=== PATIENT | female | born 1990 | race Caucasian/White ===

== ENCOUNTER 2023-10-05 20:32 | Emergency (ER) | payer MEDICAID, SELFPAY ==
[2023-10-05 20:38] VITALS: BP 124/86
--- NOTE | 2023-10-05 21:25 | ED.GENMED ---
History of Present Illness
General
Chief Complaint: Eye Problems
Source: patient
Exam Limitations: none
Time Seen by Provider: 10/05/23 20:46
Nursing documentation reviewed up to this point in time: agreed with
Travel History
Have you had any contact with someone who has COVID-19?: No
Do you have any symptoms of coronavirus? Fever > 100 degrees, chills, cough, shortness of breath, sore throat, loss of taste or smell, muscle aches, or headache?: No
History of Present Illness
History of Present Illness:
Pleasant 33-year-old female who presents with left eye pain. She states that her toddler poked her in the eye inadvertently. She has pain and haziness in the eye. She denies any problems with her range of motion. Last tetanus not up-to-date.
Past History
Past History
ED Past Medical History: Asthma and Other (Pulmonary embolus)
ED Past Surgical History: None
Social History
Tobacco: Non-smoker
Review of Systems
Review of Systems
Other source history: family
All Other Systems: ROS reviewed and negative except as documented in HPI and ROS
Constitutional: Reports no symptoms
EENT: Reports other (Eye pain)
Respiratory: Reports no symptoms
Cardiac: Reports no symptoms
ABD/GI: Reports no symptoms
: Reports no symptoms
Musculoskeletal: Reports no symptoms
Skin: Reports no symptoms
Neurological: Reports no symptoms
Endocrine: Reports no symptoms
Hematologic/Lymphatic: Reports no symptoms
Psychiatric: Reports no symptoms
Phy Exam
General Physical Exam
General Presentation: well appearing and mild distress
General age: appears stated age
General Skin: warm and dry
General Habitus: normal
General Mental: alert
General Hydration: appears well hydrated
Eye Exam
Eye Exam: PERRL and EOMI
Eye Exam General: PERRL: bilateral and EOM intact: bilateral
Cornea Exam: abrasion: Left (Midline horizontal approximate 1 mm in length)
Pupil and Lens Exam: round pupil: Bilateral
Tonometry: Side: Left (iCare tonometer used)
Pressure: 12
Pulmonary Exam
Pulmonary Exam: no respiratory distress
Musculoskeletal Exam
Musculoskeletal Exam: full ROM and neuro vasc intact
Skin Exam
Skin Exam: normal color and warm/dry
Psychiatric Exam
Psychiatric Exam: normal mood/affect
Course
Orders/Labs/Results
Orders:
Orders
10/05/23 21:26
Gentamicin [Genoptic 0.3% Eye Drops] See Dose Instructions OPHTH NOW STA
Tetanus/Diphth/Acelpertussis [Adacel] 0.5 ml IM .ONCE ONE
Vital Signs
Initial and Last Documented VS:
Initial Vital Signs
Temp Pulse Resp BP Pulse Ox
98.4 F 84 16 124/86 100
10/05/23 20:38 10/05/23 20:38 10/05/23 20:38 10/05/23 20:38 10/05/23 20:38
Last Documented Vital Signs
Temp Pulse Resp BP Pulse Ox
98.4 F 84 16 124/86 100
10/05/23 20:38 10/05/23 20:38 10/05/23 20:38 10/05/23 20:38 10/05/23 20:38
*Critical Care Note
Total Time (30-74mins, 75-104mins- exclusive of procedures): Not Applicable
ED Attending Note
-
Portions of this chart may have been created with voice recognition software.� Occasional wrong word or��sound alike� substitutions may have occurred due to the inherent limitations of voice recognition software.
Discharge Plan
Departure
Patient Disposition: Home (Routine Discharge)
Date of Disposition: 10/05/23
Time of Disposition: 21:30
Patient with high blood pressure during this ER visit?: Yes
Discharge Problem:
Abrasion, corneal
Instructions: Corneal Abrasion (DC), How to Use Eye Drops, Tdap vaccine, BLOOD PRESSURE
Prescriptions:
No Action
multivitamin [Multi-Day] 1 EACH tablet
1 ea PO DAILY
tizanidine 4 MG tablet
4 mg PO TID
Patient Comments:
usually only takes nightly
lidocaine [FERNANDO-Max] 4 % cream
1 applic topical BID
Patient Comments:
5% ointment per pt
escitalopram oxalate 20 MG tablet
20 mg PO DAILY
metaxalone [Skelaxin] 800 MG tablet
800 mg PO DAILY
Patient Comments:
ordered q8h per pt, only takes nightly
cyclobenzaprine 10 MG tablet
10 mg PO TIDPRN PRN (Reason: spasm) Qty: 9 0RF
hydrocodone-acetaminophen 1 TABLET tablet
1 tab PO Q4HPRN PRN (Reason: pain) Qty: 10 0RF
prednisone 50 MG tablet
50 mg PO Daily Qty: 4 0RF
oxycodone-acetaminophen 5 MG/325 MG tablet
1 tab PO Q4HPRN PRN (Reason: Pain) Qty: 12 0RF
ondansetron HCl 4 mg tablet
4 mg PO Q8H PRN (Reason: nausea and vomiting) Qty: 10 0RF
Referrals:
Kimani Wang MD [Active] -
Activity Restrictions/Additional Instructions:
Please apply 1 drop to left eye every 4-6 hours while awake for 5 days
It was a pleasure meeting you and taking part in your care. We hope for your continued healing and wellness.
Please read discharge instructions in their entirety. However, they are for general education and may not describe your exact diagnosis at discharge. Information on your ER visit and medical conditions were discussed with you along with appropriate
follow up information...
If indicated, please take your medications as instructed and indicated on discharge paperwork.
Please schedule a follow up appointment as directed. Call to schedule an appointment
Please return to the emergency department with ANY change in, persisting, or worsening of symptoms. If any of your symptoms do not improve, or persist, or become more severe within 6-12 hours, please return to the emergency department for further
care.
Please return to the emergency department if you develop a headache, neck pain/stiffness, fever greater than 100.4F, chest pain, shortness of breath, persistent nausea, vomiting, slurred speech, difficulty walking, numbness/tingling, weakness, signs
of infection or any other symptoms that are worrisome to you.
If you have any questions or concerns please do not hesitate to call the Hospital at or E-mail me directly at [email or web address]
Interventions
Interventions:
*Risk Screen - Suicide Last Done: 10/05/23 20:38
*General Assessment Last Done: 10/05/23 20:38
*Neglect/Abuse Screening Last Done: 10/05/23 20:38
[2023-10-05] MEDS: GENOPTIC 0.3% EYE DROPS 1 DROP OPHTH (21:39)
[2023-10-05] MEDS: ADACEL 0.5 ML IM (21:39)
== END 2023-10-05 21:40 | disposition home or self-care (01) ==
LOC: EMR 20:32
PROVIDERS: EMERGENCY PHYSICIAN Student in an Organized Health Care Education/Training Program; FAMILY PHYSICIAN Family Medicine Geriatric Medicine
DX: S05.02XA Injury of conjunctiva and corneal abrasion without foreign body, left eye, initial encounter (principal); X58.XXXA Exposure to other specified factors, initial encounter; Z23 Encounter for immunization; J45.909 Unspecified asthma, uncomplicated; Z86.711 Personal history of pulmonary embolism
CPT/HCPCS: 90471; 90715; 99282

== ENCOUNTER 2023-10-22 12:42 | Emergency (ER) | payer MEDICAID, SELFPAY ==
[2023-10-22 12:45] VITALS: BP 133/73
--- NOTE | 2023-10-22 13:49 | ED.MUSCINJ ---
HPI-Injury
General
Chief Complaint: Fall
Source: patient
Exam Limitations: none
Time Seen by Provider: 10/22/23 13:03
Nursing documentation reviewed up to this point in time: agreed with
Travel History
Have you had any contact with someone who has COVID-19?: No
Do you have any symptoms of coronavirus? Fever > 100 degrees, chills, cough, shortness of breath, sore throat, loss of taste or smell, muscle aches, or headache?: No
History of Present Illness-Injury
Is this injury a work related problem?: No
Is pt an associate of [facility]?: No
Initial Injury comments:
Patient states she slipped on icy surface and fell. Fell onto her back. Denies hitting her head. No LOC. COmplains of pain to mid back. Hx of T12 vertebral fx approx 5 years ago. States pain feels the same. Incident occurred yesterday
Brought self to ED for eval.
Past History
Past History
ED Past Medical History: Asthma and Other (Pulmonary embolus)
ED Past Surgical History: None
Social History
Tobacco: Non-smoker
Review of Systems
Review of Systems
Allergies reviewed?: Yes
All Other Systems: ROS reviewed and negative except as documented in HPI and ROS
Constitutional: Reports no symptoms
Musculoskeletal: Reports joint pain (pain to mid back)
Skin: Reports no symptoms
Neurological: Reports no symptoms
Psychiatric: Reports no symptoms
Musculoskeletal Injury Exam
Musculoskeletal Injury Exam
Middle Back:
Pain with Movement?: Moderate
Tender to palpation?: Moderate
External deformity and angulation?: None
Contusion?: Moderate
Strain- Sprain- Tear (Connective tissue injury)?: Moderate
Joint instability?: No
Malalignment/deformity?: No
Range of motion: Limited
Distal skin color and temperature: normal-warm & good color
Phy Exam
General Physical Exam
General Presentation: well appearing and no apparent distress
General age: appears stated age
General Skin: warm
General Habitus: normal
General Mental: alert
Musculoskeletal Exam
Musculoskeletal Exam: other (MId back. Pain worse with movement. No weakness. Ambulating without assistance, gait is steady)
Skin Exam
Skin Exam: normal color
Psychiatric Exam
Psychiatric Exam: normal mood/affect
Injury Course
Orders/Labs/Results
Orders:
Orders
10/22/23 12:55
CR Thoracic Spine Min 4 Views Urgent
Comment:
Reason For Exam: back pain
Lumbar Spine, 2 or 3 View [CR Lumbar Spine 2 Or 3 Views] Urgent
Comment:
Reason For Exam: back pain
10/22/23 14:43
CR Chest - 2 Views Urgent
Comment:
Reason For Exam: ordered on wrong patient
Sternum 2 Views CR [CR Sternum Min 2 Views] Urgent
Comment:
Reason For Exam: ordered on wrong patient.
*Radiology
Radiology exam reviewed: radiology read reviewed
*Pulse Oximetry
Patient hypoxic: no
*Critical Care Note
Total Time (30-74mins, 75-104mins- exclusive of procedures): Not Applicable
Update Note
Update Note:
Sternum and Chest xray accidentally placed on this chart. Sternum and chest xray are not indicated for this patient, meant for another individual.
ED Attending Note
-
Portions of this chart may have been created with voice recognition software.� Occasional wrong word or��sound alike� substitutions may have occurred due to the inherent limitations of voice recognition software.
Discharge Plan
Departure
Patient Disposition: Home (Routine Discharge)
Date of Disposition: 10/22/23
Time of Disposition: 14:45
Patient with high blood pressure during this ER visit?: No
Condition: Good
Covid-19: Not Applicable
Discharge Problem:
Back pain
Instructions: Back Muscle Strain (DC), Contusion (DC), Using Cold for Pain
Prescriptions:
No Action
multivitamin [Multi-Day] 1 EACH tablet
1 ea PO DAILY
tizanidine 4 MG tablet
4 mg PO TID
Patient Comments:
usually only takes nightly
lidocaine [FERNANDO-Max] 4 % cream
1 applic topical BID
Patient Comments:
5% ointment per pt
escitalopram oxalate 20 MG tablet
20 mg PO DAILY
metaxalone [Skelaxin] 800 MG tablet
800 mg PO DAILY
Patient Comments:
ordered q8h per pt, only takes nightly
cyclobenzaprine 10 MG tablet
10 mg PO TIDPRN PRN (Reason: spasm) Qty: 9 0RF
hydrocodone-acetaminophen 1 TABLET tablet
1 tab PO Q4HPRN PRN (Reason: pain) Qty: 10 0RF
prednisone 50 MG tablet
50 mg PO Daily Qty: 4 0RF
oxycodone-acetaminophen 5 MG/325 MG tablet
1 tab PO Q4HPRN PRN (Reason: Pain) Qty: 12 0RF
ondansetron HCl 4 mg tablet
4 mg PO Q8H PRN (Reason: nausea and vomiting) Qty: 10 0RF
Referrals:
Trinity Charles, [Family Provider] -
Activity Restrictions/Additional Instructions:
Follow up with your family doctor.
Interventions
Interventions:
*Risk Screen - Suicide Last Done: 10/22/23 12:47
*General Assessment Last Done: 10/22/23 12:47
*Neglect/Abuse Screening Last Done: 10/22/23 12:47
ED-Musculoskeletal Assessment Last Done: 10/22/23 14:23
ED- Neurological Assessment Last Done: 10/22/23 14:23
ED-Skin Assessment Last Done: 10/22/23 14:23
[2023-10-22 15:10] VITALS: BP 106/69
== END 2023-10-22 15:11 | disposition home or self-care (01) ==
LOC: EMR 12:42
PROVIDERS: EMERGENCY PHYSICIAN Emergency Medicine; FAMILY PHYSICIAN Family Medicine Geriatric Medicine
DX: M54.9 Dorsalgia, unspecified (principal); W01.0XXA Fall on same level from slipping, tripping and stumbling without subsequent striking against object, initial encounter; J45.909 Unspecified asthma, uncomplicated; Z86.711 Personal history of pulmonary embolism
CPT/HCPCS: 99283; 71046; 71120; 72074; 72100

== ENCOUNTER 2023-12-19 17:20 | Emergency (ER) | payer MEDICAID, OTHER, SELFPAY ==
[2023-12-19 17:31] VITALS: BP 107/68
--- NOTE | 2023-12-19 18:25 | ED.GENMED ---
History of Present Illness
General
Chief Complaint: Head Injury
Source: patient
Exam Limitations: none
Time Seen by Provider: 12/19/23 17:44
Nursing documentation reviewed up to this point in time: agreed with
Travel History
Have you had any contact with someone who has COVID-19?: No
Do you have any symptoms of coronavirus? Fever > 100 degrees, chills, cough, shortness of breath, sore throat, loss of taste or smell, muscle aches, or headache?: No
History of Present Illness
History of Present Illness:
33-year-old female presents to the ER for evaluation of head injury. Patient reports several hours ago a small version of a pool table fell from above and hit the top of her head. She denies loss of consciousness. She does have a headache and
complains of upper neck pain. She denies any nausea vomiting numbness , tingling weakness to extremities.
Past History
Past History
ED Past Medical History: Asthma and Other (Pulmonary embolus)
ED Past Surgical History: None
Social History
Tobacco: Non-smoker
Alcohol: Occasional
Drug: None
Review of Systems
Review of Systems
Allergies reviewed?: Yes
All Other Systems: ROS reviewed and negative except as documented in HPI and ROS
Constitutional: Reports no symptoms; Denies fever, fatigue or chills
ABD/GI: Denies nausea or vomiting
Musculoskeletal: Reports neck pain; Denies back pain
Skin: Reports no symptoms
Neurological: Reports headache; Denies dizzy
Hematologic/Lymphatic: Reports no symptoms
Psychiatric: Reports no symptoms
Phy Exam
General Physical Exam
General Presentation: no apparent distress
General age: appears stated age
General Skin: warm and dry
General Habitus: normal
General Mental: alert
General Hydration: appears well hydrated
Neurological Exam
Neurological Exam: alert, oriented x3 and no motor deficits
Musculoskeletal Exam
Musculoskeletal Exam: other (+ small hematoma to left upper occiput , mildly tender to posterior neck )
Skin Exam
Skin Exam: normal color and warm/dry
Psychiatric Exam
Psychiatric Exam: normal mood/affect
Course
Orders/Labs/Results
Orders:
Orders
12/19/23 18:24
CT Head W/o Iv Contrast Urgent
Comment:
Reason For Exam: head trauma
12/19/23 18:25
CT Cervical Spine W/o Iv Contr Urgent
Comment:
Reason For Exam: trauma
12/19/23 19:02
, Urine Qualitative Screen [HCG, Urine Qualitative Screen] Urgent
Date Specimen was Collected: 12/19/23
Time Specimen was Collected: 19:02
Test Result ONCE
Vital Signs
Initial and Last Documented VS:
Initial Vital Signs
Temp Pulse Resp BP Pulse Ox
98.2 F 66 18 107/68 100
12/19/23 17:31 12/19/23 17:31 12/19/23 17:31 12/19/23 17:31 12/19/23 17:31
Last Documented Vital Signs
Temp Pulse Resp BP Pulse Ox
98.2 F 74 17 116/61 100
12/19/23 17:31 12/19/23 20:19 12/19/23 20:19 12/19/23 20:19 12/19/23 20:19
MDM/Problems Addressed
Differential Diagnosis Includes:
Not limited to head injury less likely intracranial hemorrhage, cervical sprain versus fracture, contusion
MDM/Problems Addressed:
Symptoms are consistent with mild head injury, will DC with Tylenol, ice and outpatient follow.
*Radiology
Radiology exam reviewed: radiology read reviewed
*Critical Care Note
Total Time (30-74mins, 75-104mins- exclusive of procedures): Not Applicable
ED Attending Note
-
Portions of this chart may have been created with voice recognition software.� Occasional wrong word or��sound alike� substitutions may have occurred due to the inherent limitations of voice recognition software.
Discharge Plan
Departure
Patient Disposition: Home (Routine Discharge)
Date of Disposition: 12/19/23
Time of Disposition: 20:41
Patient with high blood pressure during this ER visit?: No
Condition: Fair
Covid-19: Not Applicable
Discharge Problem:
Head injury
Instructions: Head Injury in Adults (DC)
Prescriptions:
No Action
multivitamin [Multi-Day] 1 EACH tablet
1 ea PO DAILY
tizanidine 4 MG tablet
4 mg PO TID
Patient Comments:
usually only takes nightly
lidocaine [FERNANDO-Max] 4 % cream
1 applic topical BID
Patient Comments:
5% ointment per pt
escitalopram oxalate 20 MG tablet
20 mg PO DAILY
metaxalone [Skelaxin] 800 MG tablet
800 mg PO DAILY
Patient Comments:
ordered q8h per pt, only takes nightly
cyclobenzaprine 10 MG tablet
10 mg PO TIDPRN PRN (Reason: spasm) Qty: 9 0RF
hydrocodone-acetaminophen 1 TABLET tablet
1 tab PO Q4HPRN PRN (Reason: pain) Qty: 10 0RF
prednisone 50 MG tablet
50 mg PO Daily Qty: 4 0RF
oxycodone-acetaminophen 5 MG/325 MG tablet
1 tab PO Q4HPRN PRN (Reason: Pain) Qty: 12 0RF
ondansetron HCl 4 mg tablet
4 mg PO Q8H PRN (Reason: nausea and vomiting) Qty: 10 0RF
Referrals:
NONE,* [Family Provider] -
Activity Restrictions/Additional Instructions:
As discussed your CAT scans were normal. You may take Tylenol or ibuprofen for discomfort. Follow-up with family doctor the next of days return if any worsening of symptoms.
Interventions
Interventions:
*Risk Screen - Suicide Last Done: 12/19/23 17:33
*General Assessment Last Done: 12/19/23 17:33
*Neglect/Abuse Screening Last Done: 12/19/23 17:33
ED- Neurological Assessment Last Done: 12/19/23 17:48
ED-Skin Assessment Last Done: 12/19/23 17:48
Discharge Date and Time
Print Language: CAMEROONIAN
[2023-12-19 19:09] LABS: HCG, Urine Qualitative Screen Negative
[2023-12-19 20:19] VITALS: BP 116/61
== END 2023-12-19 20:48 | disposition home or self-care (01) ==
LOC: EMR 17:20
PROVIDERS: Nurse Practitioner; EMERGENCY PHYSICIAN Emergency Medicine
DX: S09.90XA Unspecified injury of head, initial encounter (principal); W22.03XA Walked into furniture, initial encounter; J45.909 Unspecified asthma, uncomplicated; Z86.711 Personal history of pulmonary embolism
CPT/HCPCS: 99284; 70450; 72125; 81025

== ENCOUNTER 2024-05-14 23:44 | Emergency (ER) | payer OTHER, SELFPAY ==
[2024-05-14 23:49] VITALS: BP 119/82
--- NOTE | 2024-05-15 00:13 | ED.GENMED ---
History of Present Illness
General
Chief Complaint: Skin Problem
Source: patient
Exam Limitations: none
Time Seen by Provider: 05/15/24 00:03
History of Present Illness
History of Present Illness:
This is a 33 year old female that comes in with c/o possible abscess or cellulitis on the left shoulder .States that she started yesterday with some redness on the left shoulder. State that she went to earlier and she was place o Doxycycline.
States that she has only had one dose. States that she was told that if the redness increased or pain increases to go to the ER. Denies any fever, chills, chest pain, SOB, abd pain, nausea, vomiting, diarrhea, headache, dizziness, urinary burning.
Past History
Past History
ED Past Medical History: Asthma and Other (PE, sleep apnea, ); Negative HTN, Hypercholesterolemia or NIDDM
ED Past Surgical History: Orthopedic (left rotator cuff) and Other (Gastric sleeve)
Social History
Tobacco: Non-smoker
Alcohol: Occasional
Drug: None
Personal: Single
Living: with family
Review of Systems
Review of Systems
All Other Systems: ROS reviewed and negative except as documented in HPI and ROS
Constitutional: Reports no symptoms; Denies fever or chills
EENT: Reports no symptoms
Respiratory: Reports no symptoms; Denies cough or trouble breathing
Cardiac: Reports no symptoms; Denies chest pain
ABD/GI: Reports no symptoms; Denies abdominal pain, nausea, vomiting or diarrhea
: Reports no symptoms; Denies dysuria, frequency or urgency
Musculoskeletal: Reports no symptoms
Skin: Reports other (redness on the left shoulder)
Neurological: Reports no symptoms; Denies dizzy or headache
Psychiatric: Reports no symptoms
Phy Exam
General Physical Exam
General Presentation: well appearing and no apparent distress
General age: appears stated age
General Skin: warm and dry
General Habitus: normal
General Mental: alert
General Hydration: appears well hydrated
ENT Exam
ENT Exam: TM's normal, pharynx normal and neck supple
Eye Exam
Eye Exam: EOMI
Cardiovascular Exam
Cardiovascular Exam: regular rate/rhythm, no edema, no murmur and normal peripheral pulses
Musculoskeletal Exam
Musculoskeletal Exam: full ROM and no edema
Skin Exam
Skin Exam: normal color, warm/dry, no petechia and other (small quarter sized area of slight redness with small collection noted that is flat)
Psychiatric Exam
Psychiatric Exam: normal mood/affect
Course
Vital Signs
Initial and Last Documented VS:
Initial Vital Signs
Pulse Resp BP Pulse Ox
84 16 119/82 100
05/14/24 23:49 05/14/24 23:49 05/14/24 23:49 05/14/24 23:49
Last Documented Vital Signs
Pulse Resp BP Pulse Ox
84 16 119/82 100
05/14/24 23:49 05/14/24 23:49 05/14/24 23:49 05/14/24 23:49
MDM/Problems Addressed
Differential Diagnosis Includes:
small cyst. Abscess,
MDM/Problems Addressed:
This is a 33 year old female that comes in with c/o an area of redness on the left shoulder that started yesterday. States that she as seen at and place on Doxycycline but she only had one dose. States that she was told that if the redness
increase or it was more painful to go to the ER.
Explained to patient that she needs to give the antibiotic 24-48 hours to work. There is not much of any fluid noted and it is not ready to be opened. Patient states that she is to go back to on Friday. Explained patient that if she gets a fever
or she has any other concerns to return to the emergency room.
Chronic conditions affecting care:
NA
Acute Exacerbation and/or Progression of Chronic Illness:
NA
*Pulse Oximetry
Patient hypoxic: no
*EKG
Interpreted by ED Provider?: NA
Rate: EKG- N/A
*Personal Finance Instructor Interpretation
Rate: Personal Finance Instructor- N/A
*Critical Care Note
Total Time (30-74mins, 75-104mins- exclusive of procedures): Not Applicable
ED Attending Note
-
Portions of this chart may have been created with voice recognition software.� Occasional wrong word or��sound alike� substitutions may have occurred due to the inherent limitations of voice recognition software.
Discharge Plan
Departure
Patient Disposition: Home (Routine Discharge)
Date of Disposition: 05/15/24
Time of Disposition: 00:23
Patient with high blood pressure during this ER visit?: No
Condition: Good
Covid-19: Not Applicable
Discharge Problem:
Abscess of skin of left shoulder
Instructions: Skin Abscess
Prescriptions:
No Action
multivitamin [Multi-Day] 1 EACH tablet
1 ea PO DAILY
tizanidine 4 MG tablet
4 mg PO TID
Patient Comments:
usually only takes nightly
lidocaine [FERNANDO-Max] 4 % cream
1 applic topical BID
Patient Comments:
5% ointment per pt
escitalopram oxalate 20 MG tablet
20 mg PO DAILY
metaxalone [Skelaxin] 800 MG tablet
800 mg PO DAILY
Patient Comments:
ordered q8h per pt, only takes nightly
cyclobenzaprine 10 MG tablet
10 mg PO TIDPRN PRN (Reason: spasm) Qty: 9 0RF
hydrocodone-acetaminophen 1 TABLET tablet
1 tab PO Q4HPRN PRN (Reason: pain) Qty: 10 0RF
prednisone 50 MG tablet
50 mg PO Daily Qty: 4 0RF
oxycodone-acetaminophen 5 MG/325 MG tablet
1 tab PO Q4HPRN PRN (Reason: Pain) Qty: 12 0RF
ondansetron HCl 4 mg tablet
4 mg PO Q8H PRN (Reason: nausea and vomiting) Qty: 10 0RF
Activity Restrictions/Additional Instructions:
As discussed, please continue with the antibiotics that you have been given. Continue with Tylenol 1000mg very 6 hours for pain. Please do warm compresses to this area 3-4 times daily for 20 min. This will help either get this ready to be opened or
help brake up any collection. IF YOU HAVE FEVER, OR YOU HAVE REDNESS COMING UP INTO THE SHOULDER OR YOU HAVE ANY OTHER CONCERNS PLEASE RETURN TO THE EMERGENCY ROOM.
Interventions
Interventions:
*Risk Screen - Suicide Last Done: 05/14/24 23:49
*General Assessment Last Done: 05/14/24 23:49
*Neglect/Abuse Screening Last Done: 05/14/24 23:49
ED- Fall Risk Assessment Last Done: 05/14/24 23:49
*ED COVID-19 Vaccine History Last Done: 05/14/24 23:49
Discharge Date and Time
Print Language: ALBANIAN
== END 2024-05-15 00:49 | disposition home or self-care (01) ==
LOC: EMR 23:44
PROVIDERS: EMERGENCY PHYSICIAN Emergency Medicine; FAMILY PHYSICIAN Family Medicine Geriatric Medicine
DX: L02.414 Cutaneous abscess of left upper limb (principal); J45.909 Unspecified asthma, uncomplicated; G47.30 Sleep apnea, unspecified
CPT/HCPCS: 99282

== ENCOUNTER 2024-08-09 10:25 | Emergency (ER) | payer OTHER, SELFPAY ==
[2024-08-09 10:50] VITALS: BP 122/74
[2024-08-09 11:30] LABS: % Basophils 0.1 % (0-2); % Eosinophils 0.1 % (0-6); % Immature Granulocytes 0.6 % (0-0.5); % Lymphocytes 3.2 % (20.5-51.1); % Monocytes 1.9 % (1.7-9.3); % Neutrophils 94.1 % (42.2-75.2); Absolute Immature Granulocytes 0.1 10^3/uL (0-0.05); Absolute Lymphocytes 0.3 10^3/uL (1.2-3.4); Absolute Monocytes 0.2 10^3/uL (0.1-0.6); Absolute Neutrophils 9.4 10^3/uL (1.4-6.5); Hematocrit 43.8 % (37.0-47.0); Mean Corp Hgb Conc. 34.2 g/dL (33.0-37.0); Mean Corpuscular Hgb 31.6 pg (27.0-31.0); Mean Corpuscular Volume 92.4 fL (81.0-99.0); Mean Platelet Volume 10.7 fL (7.4-10.4); Nucleated Red Blood Cells % 0 %; Platelet Count 178 10^3/uL (130-400); Red Blood Cell Count 4.74 10^6/uL (4.20-5.40); Red Cell Dist. Width 12.6 % (11.5-14.5)
[2024-08-09 11:39] LABS: HCG, Serum Qualitative Screen Negative
[2024-08-09 11:44] LABS: ALT (SGPT) 21 U/L (0-35); AST (SGOT) 22 U/L (14-36); Albumin 4.7 g/dl (3.5-5.0); Alkaline Phosphatase 39 U/L (38-126); Blood Urea Nitrogen 18 mg/dl (7-17); Calcium 9.4 mg/dl (8.4-10.2); Carbon Dioxide 20 mmol/L (22-30); Chloride 107 mmol/L (98-107); Glucose 107 mg/dl (70-99); Lipase 92 U/L (23-300); Potassium 3.8 mmol/L (3.5-5.1); Sodium 141 mmol/L (135-145); Total Bilirubin 2.3 mg/dl (0.2-1.3); Total Protein 7.3 g/dl (6.3-8.2); eGFR > 60.00
[2024-08-09] MEDS: ZOFRAN 4 MG IV (11:44)
[2024-08-09] MEDS: NSS 1000 IV (11:44)
[2024-08-09] MEDS: TYLENOL 650 MG PO (12:12)
[2024-08-09] MEDS: BENTYL 10 MG PO (12:12)
--- NOTE | 2024-08-09 12:54 | ED.GENMED ---
History of Present Illness
General
Chief Complaint: Abdominal Symptoms
Time Seen by Provider: 08/09/24 11:01
History of Present Illness
History of Present Illness:
33-year-old female presents the emergency department for evaluation of intractable nausea vomiting and diarrhea beginning last night. Multiple sick coworkers with similar symptoms reported. Denies any dysuria or hematuria. History of gastric
sleeve, has intense pain whenever vomiting but no hematemesis.
Past History
Past History
ED Past Medical History: Asthma and Other (PE, sleep apnea, ); Negative HTN, Hypercholesterolemia or NIDDM
ED Past Surgical History: Orthopedic (left rotator cuff) and Other (Gastric sleeve)
Social History
Tobacco: Non-smoker
Alcohol: Occasional
Drug: None
Personal: Single
Living: with family
Review of Systems
Review of Systems
Allergies reviewed?: Yes
All Other Systems: ROS reviewed and negative except as documented in HPI and ROS
Phy Exam
Physical Exam
Physical Exam:
GEN: Well appearing, NAD, WDWN
Eyes: PERRLA, EOMs intact, no scleral icterus
HENT: NCAT, oral mucosa moist
Lungs: CTAB, no wheezes, rales, rhonchi, normal chest wall excursion
Cardiac: Mildly tachycardic, regular
Abdomen: Soft, tender to all 4 quadrants
Neuro: AO x 3
MSK: No gross deformity or ecchymosis. No edema. No digital clubbing
Skin: No rashes, petechiae. Normal color, no pallor or jaundice.
Psych: Calm, cooperative, proper hygiene
Course
Orders/Labs/Results
Orders:
Orders
08/09/24 11:11
Test Result ONCE
08/09/24 11:15
Complete Blood Count/With Diff Urgent
Comprehensive Metabolic Panel Urgent
HCG, Serum Qualitative Screen Urgent
Lipase Urgent
12/02/24 11:38
0.9% Sodium Chloride 1000 ml [Nss] 1,000 ml IV BOLUS
Acetaminophen [Tylenol] 650 mg PO NOW STA
Dicyclomine [Bentyl] 10 mg PO NOW STA
Ondansetron Injectable [Zofran] 4 mg IV NOW STA
Abnormal Lab Results
08/09/24
11:15
MCH 31.6 H pg
(27.0-31.0)
MPV 10.7 H fL
(7.4-10.4)
Abs Immat Gran (auto) 0.1 H 10^3/uL
(0-0.05)
Absolute Neuts (auto) 9.4 H 10^3/uL
(1.4-6.5)
Absolute Lymphs (auto) 0.3 L 10^3/uL
(1.2-3.4)
Immature Gran % 0.6 H %
(0-0.5)
Neutrophils % 94.1 H %
(42.2-75.2)
Lymphocytes % 3.2 L %
(20.5-51.1)
Carbon Dioxide 20 L mmol/L
(22-30)
BUN 18 H mg/dl
(7-17)
Glucose 107 H mg/dl
(70-99)
Total Bilirubin 2.3 H mg/dl
(0.2-1.3)
08/09/24 11:15
08/09/24 11:15
Vital Signs
Initial and Last Documented VS:
Initial Vital Signs
Temp Pulse BP Pulse Ox
97.9 F 106 122/74 99
08/09/24 10:50 08/09/24 10:50 08/09/24 10:50 08/09/24 10:50
Last Documented Vital Signs
Temp Pulse BP Pulse Ox
97.9 F 106 122/74 99
08/09/24 10:50 08/09/24 10:50 08/09/24 10:50 08/09/24 10:50
MDM/Problems Addressed
MDM/Problems Addressed:
Patient able to tolerate p.o. fluids after IV antiemetics and IV fluids. Discharged in stable condition, no indication for imaging most likely self-limited viral syndrome particular given exposure to multiple ill coworkers
*Critical Care Note
Total Time (30-74mins, 75-104mins- exclusive of procedures): Not Applicable
ED Attending Note
-
Portions of this chart may have been created with voice recognition software.� Occasional wrong word or��sound alike� substitutions may have occurred due to the inherent limitations of voice recognition software.
Discharge Plan
Departure
Patient Disposition: Home (Routine Discharge)
Date of Disposition: 08/09/24
Time of Disposition: 12:54
Patient with high blood pressure during this ER visit?: No
Discharge Problem:
Gastroenteritis
Instructions: Nausea and Vomiting, Adult (DC)
Prescriptions:
New
ondansetron 4 mg tablet,disintegrating
4 mg PO TIDPRN PRN (Reason: nausea/vomiting) Qty: 10 0RF
No Action
multivitamin [Multi-Day] 1 EACH tablet
1 ea PO DAILY
tizanidine 4 MG tablet
4 mg PO TID
Patient Comments:
usually only takes nightly
lidocaine [FERNANDO-Max] 4 % cream
1 applic topical BID
Patient Comments:
5% ointment per pt
escitalopram oxalate 20 MG tablet
20 mg PO DAILY
metaxalone [Skelaxin] 800 MG tablet
800 mg PO DAILY
Patient Comments:
ordered q8h per pt, only takes nightly
cyclobenzaprine 10 MG tablet
10 mg PO TIDPRN PRN (Reason: spasm) Qty: 9 0RF
hydrocodone-acetaminophen 1 TABLET tablet
1 tab PO Q4HPRN PRN (Reason: pain) Qty: 10 0RF
prednisone 50 MG tablet
50 mg PO Daily Qty: 4 0RF
oxycodone-acetaminophen 5 MG/325 MG tablet
1 tab PO Q4HPRN PRN (Reason: Pain) Qty: 12 0RF
ondansetron HCl 4 mg tablet
4 mg PO Q8H PRN (Reason: nausea and vomiting) Qty: 10 0RF
Referrals:
UNKNOWN - PT DOES,NOT KNOW [Family Provider] -
Stand Alone Forms: Return to Work
Interventions
Interventions:
*Risk Screen - Suicide Last Done: 08/09/24 10:55
*General Assessment Last Done: 08/09/24 11:06
*Neglect/Abuse Screening Last Done: 08/09/24 10:55
*Nursing Disposition Last Done: 08/09/24 13:42
[facility] Assessment Last Done: 08/09/24 11:06
Discharge Date and Time
Discharge Date/Time: 08/09/24 13:42
Print Language: WOLOF
== END 2024-08-09 13:42 | disposition home or self-care (01) ==
LOC: EMR 10:25
PROVIDERS: Physician Assistant; EMERGENCY PHYSICIAN Emergency Medicine
DX: K52.9 Noninfective gastroenteritis and colitis, unspecified (principal)
CPT/HCPCS: 99284; 96374; 96361; 80053; 83690; 84703; 85025

== ENCOUNTER 2025-03-26 23:01 | Emergency (ER) | payer OTHER, SELFPAY ==
[2025-03-26 23:04] VITALS: BP 110/73
[2025-03-27] VITALS: BP 108/72
[2025-03-27 00:01] VITALS: BMI 23.0
[2025-03-27 00:24] LABS: HCG, Urine Qualitative Screen Negative
--- NOTE | 2025-03-27 01:02 | ED.GENMED ---
History of Present Illness
<Tae Dunn MD, Resident - Last Filed: 03/27/25 01:37>
General
Chief Complaint: Fall
Source: patient
Exam Limitations: none
Time Seen by Provider: 03/27/25 00:55
Nursing documentation reviewed up to this point in time: agreed with
History of Present Illness
History of Present Illness:
This is a 34-year-old female with history of asthma, PE, sleep apnea uses inhaler as needed presenting in the emergency department with complaints of lower back/tailbone pain. Reportedly when she was trying to use a slide at a amusement park, her
foot slipped she landed on her buttock, she completed the slide however she she felt pain She has been experiencing constant discomfort/pain which aggravates with laying down or any movement. She took a 20 mg naproxen which provided some benefit.
Given her history of gastric sleeve procedure reportedly she is not advised to use NSAID for more than 2 weeks at a time and she was already on ibuprofen for sore throat recently.
Past History
<aTe Dunn MD, Resident - Last Filed: 03/27/25 01:37>
Past History
ED Past Medical History: Asthma and Other (PE, sleep apnea, ); Negative HTN, Hypercholesterolemia or NIDDM
ED Past Surgical History: Orthopedic (left rotator cuff) and Other (Gastric sleeve)
Patient has exhibited threatening behavior?: No
Social History
Tobacco: Non-smoker
Alcohol: Occasional
Drug: None
Living: with family
Family History
Family History: Other (Noncontributory)
Review of Systems
<Tae Dunn MD, Resident - Last Filed: 03/27/25 01:37>
Review of Systems
Allergies reviewed?: Yes
All Other Systems: ROS reviewed and negative except as documented in HPI and ROS
Musculoskeletal: Reports back pain
Neurological: Reports no symptoms
Phy Exam
<Tae Dunn MD, Resident - Last Filed: 03/27/25 01:37>
General Physical Exam
General Presentation: well appearing and no apparent distress
General age: appears stated age
General Skin: warm
General Habitus: normal
General Mental: alert
General Hydration: appears well hydrated
Cardiovascular Exam
Cardiovascular Exam: regular rate/rhythm
Pulmonary Exam
Pulmonary Exam: lungs clear
Neurological Exam
Neurological Exam: alert, oriented x3, no motor deficits and no sensory deficits
Musculoskeletal Exam
Musculoskeletal Exam: back tenderness (coccyx, no obvious visual inspection findings)
Course
<Tae Dunn MD, Resident - Last Filed: 03/27/25 01:37>
Orders/Labs/Results
Orders:
Orders
03/26/25 23:55
HCG, Urine Qualitative Screen Urgent
Date Specimen was Collected: 03/26/25
Time Specimen was Collected: 23:55
Test Result ONCE
03/27/25 00:50
Sacrum/Coccyx 2 View CR [CR Sacrum/coccyx Min 2 View] Urgent
Comment:
Reason For Exam: injury
Vital Signs
Initial and Last Documented VS:
Initial Vital Signs
Temp Pulse Resp BP Pulse Ox
97.7 F 77 18 110/73 100
03/26/25 23:04 03/26/25 23:04 03/26/25 23:04 03/26/25 23:04 03/26/25 23:04
Last Documented Vital Signs
Temp Pulse Resp BP Pulse Ox
97.7 F 70 20 108/72 98
03/26/25 23:04 03/27/25 00:00 03/27/25 00:00 03/27/25 00:00 03/27/25 01:03
<Mena Chahal DO - Last Filed: 03/27/25 01:34>
Orders/Labs/Results
Orders:
Orders
03/26/25 23:55
HCG, Urine Qualitative Screen Urgent
Date Specimen was Collected: 03/26/25
Time Specimen was Collected: 23:55
Test Result ONCE
03/27/25 00:50
Sacrum/Coccyx 2 View CR [CR Sacrum/coccyx Min 2 View] Urgent
Comment:
Reason For Exam: injury
Vital Signs
Initial and Last Documented VS:
Initial Vital Signs
Temp Pulse Resp BP Pulse Ox
97.7 F 77 18 110/73 100
03/26/25 23:04 03/26/25 23:04 03/26/25 23:04 03/26/25 23:04 03/26/25 23:04
Last Documented Vital Signs
Temp Pulse Resp BP Pulse Ox
97.7 F 70 20 108/72 98
03/26/25 23:04 03/27/25 00:00 03/27/25 00:00 03/27/25 00:00 03/27/25 01:03
<Tae Dunn MD, Resident - Last Filed: 03/27/25 01:37>
MDM/Problems Addressed
Differential Diagnosis Includes:
Coccydynia vs less likely sacral fracture
MDM/Problems Addressed:
Sacrum and coccyx x-ray with no obvious acute fractures
On her history of gastric sleeve she is not willing to take NSAIDs for the pain. Discussed the use of donut pillow. Discussed the use of ice.
Will send tramadol 50 mg which she can use 1 tablet for moderate pain and use Tylenol for mild pain.. Advised to follow-up with PCP. She might need physical therapy if her symptoms/pain do not improve in few days.
She also has poison isela rash on right posterior thigh.
Will send prednisone 20 mg for next 3 days.
Shared decision was made with patient for discharge home on tramadol and prednisone. Side effects from tramadol including constipation reviewed. Encourage high-fiber diet . Return precautions reviewed. Patient voices understanding and agree with
the plan
<Tae Dunn MD, Resident - Last Filed: 03/27/25 01:37>
*Pulse Oximetry
SaO2: 98
Oxygen Mode of Delivery: Room air
Patient hypoxic: no
*Critical Care Note
Total Time (30-74mins, 75-104mins- exclusive of procedures): Not Applicable
ED Attending Note
<Tae Dunn MD, Resident - Last Filed: 03/27/25 01:37>
-
Portions of this chart may have been created with voice recognition software.� Occasional wrong word or��sound alike� substitutions may have occurred due to the inherent limitations of voice recognition software.
<Mena Chahal DO - Last Filed: 03/27/25 01:34>
ED Attending Note
Patient seen and examined by attending physician: Yes
I performed a history and physical exam of patient and discussed management with resident, I reviewed resident's note and agree with documented findings and plan of care.: Yes
ED Attending Note:
34-year-old female with history of mild intermittent asthma, prior history of gastric sleeve presents with buttock pain after she inadvertently slipped and fell onto her buttocks while at the top of a slide. She denies head injury, denies neck nor
back pain. Injury occurred tonight. She has been ambulatory since slip and fall. She took a dose of naproxen 220 mg around 9:30 PM tonight and notes moderate improvement in pain. Continues with moderate pain more so when sitting, improves when
standing or lying on her sides.
She denies leg pain, no weakness or numbness, no abdominal pain, no saddle anesthesia.
Denies risk of has IUD in place.
34-year-old female appears her stated age. Awake and alert, pleasant, appears in no acute distress. Preferentially lying on her side.
Back: There is no midline bony tenderness. Mild to moderate tenderness distal mid to right sacrum as well as mild tenderness coccyx region. There is a 3-4 cm ecchymotic contusion right inferomedial buttocks.
There is also note of erythematous maculopapular rash in patches along the right lateral thigh with surrounding linear excoriations. Patient states this is poison isela in nature, resolving.
No focal neurodeficits. Motor strength is 5/5 bilaterally. Full range of motion of the lower extremities without difficulty.
Concern for sacral/coccyx contusion versus fracture.
She is also noted to have resolving poison isela dermatitis right lateral thigh.
As patient has prior history of gastric sleeve, NSAIDs are to be limited.
Sacral/coccyx x-ray shows questionable fracture at distal coccyx.
Will treat with short course of prednisone as well as a small prescription for tramadol for as needed moderate pain. May take Tylenol as needed for mild pain.
Recommend donut pillow while sitting.
Discussed importance of high-fiber diet, avoidance of constipation.
Prompt follow-up with PCP for recheck.
Discharge Plan
Departure
Patient Disposition: Home (Routine Discharge)
Date of Disposition: 03/27/25
Time of Disposition: 01:28
Patient with high blood pressure during this ER visit?: No
Condition: Fair
Discharge Problem:
Coccydynia
Instructions: Coccyx Injury ED
Prescriptions:
New
prednisone 20 mg tablet
20 mg PO DAILY Qty: 3 0RF
tramadol 50 mg tablet
50 mg PO BID PRN (Reason: Pain) Qty: 6 0RF
No Action
multivitamin [Multi-Day] 1 EACH tablet
1 ea PO DAILY
tizanidine 4 MG tablet
4 mg PO TID
Patient Comments:
usually only takes nightly
metaxalone [Skelaxin] 800 MG tablet
800 mg PO DAILY
Patient Comments:
ordered q8h per pt, only takes nightly
fluticasone propion-salmeterol [Advair Diskus] 250-50 mcg/dose Blister With Device
1 inh INHALATION BID
ipratropium-albuterol [DuoNeb] 0.5 mg-3 mg(2.5 mg base)/3 mL Solution For Nebulization
5 ml INHALATION Q4H PRN (Reason: SOB)
montelukast [Singulair] 10 mg Tablet
10 mg PO DAILY
Wegovy 1.7 mg/0.75 mL Pen Injector
See Rx Instructions .ROUTE .COMPLEX PRN (Reason: SOB)
Rx Instructions:
1 dose q 10 days
albuterol sulfate
2 inh inhalation Q4H PRN (Reason: sob)
Referrals:
UNKNOWN - PT DOES,NOT KNOW [Family Provider]
Activity Restrictions/Additional Instructions:
You were seen at [facility] emergency department with concerns of tailbone pain after a fall. You had a sacrum and coccyx x-ray which did not show any obvious fractures. Your vitals remained stable. A prescription for prednisone 20 mg
tablet was sent to the pharmacy please use it daily for the next 3 days. A prescription of tramadol 50 mg tablet was also sent to the pharmacy you can use 1 tablet as needed twice a day for moderate pain. You may use Tylenol for mild pain. While
you use tramadol we encourage that you use high-fiber diet to avoid constipation . you may utilize donut pillow to help with quick recovery. Please follow-up with your PCP. If you develop any new symptoms. Symptoms please return to the emergency
department. Additional instructions are attached with these paperwork.
Interventions
Interventions:
*Risk Screen - Suicide Last Done: 03/26/25 23:04
*General Assessment Last Done: 03/26/25 23:04
*Neglect/Abuse Screening Last Done: 03/26/25 23:04
*ED- Fall Risk Assessment Last Done: 03/27/25 00:03
*ED COVID-19 Vaccine History Last Done: 03/27/25 00:03
ED-Musculoskeletal Assessment Last Done: 03/27/25 00:48
ED- Neurological Assessment Last Done: 03/27/25 00:48
ED-Skin Assessment Last Done: 03/27/25 00:48
Discharge Date and Time
Print Language: NEPALI
[2025-03-27] MEDS: ULTRAM 50 MG PO (01:56)
== END 2025-03-27 02:20 | disposition home or self-care (01) ==
LOC: EMR 23:01
PROVIDERS: EMERGENCY PHYSICIAN Emergency Medicine
DX: M53.3 Sacrococcygeal disorders, not elsewhere classified (principal); S30.0XXA Contusion of lower back and pelvis, initial encounter; W01.0XXA Fall on same level from slipping, tripping and stumbling without subsequent striking against object, initial encounter; L23.7 Allergic contact dermatitis due to plants, except food; G47.30 Sleep apnea, unspecified; J45.20 Mild intermittent asthma, uncomplicated
CPT/HCPCS: 99283; 72220; 81025

== ENCOUNTER 2025-05-28 23:21 | Emergency (ER) | payer OTHER, SELFPAY ==
[2025-05-28 23:24] VITALS: BP 92/68
--- NOTE | 2025-05-29 00:20 | ED.GENMED ---
History of Present Illness
General
Chief Complaint: Musculo-Skeletal Complaint
Source: patient
Time Seen by Provider: 05/28/25 23:50
History of Present Illness
History of Present Illness:
34-year-old female presenting to the ER for evaluation after she fell onto her right foot noting that she was standing on a chair and the chair started to fall backwards, patient states she fell directly onto her right foot at the proximal
metatarsals and has since had waxing and waning tingling/burning sensation. She notes that she is still able to ambulate although with discomfort while doing so. No other injuries.
Past History
Past History
ED Past Medical History: Asthma and Other (PE, sleep apnea, ); Negative HTN, Hypercholesterolemia or NIDDM
ED Past Surgical History: Orthopedic (left rotator cuff) and Other (Gastric sleeve)
Patient has exhibited threatening behavior?: No
Social History
Tobacco: Non-smoker
Alcohol: Occasional
Drug: None
Personal: Single
Living: with family
Family History
Family History: Other (Noncontributory)
Review of Systems
Review of Systems
All Other Systems: ROS reviewed and negative except as documented in HPI and ROS
Phy Exam
Physical Exam
Physical Exam:
GENERAL: Alert , in no apparent distress
EYE: conjunctiva clear
Head: Normocephalic atraumatic
NECK: Supple,
ENT: mmm.
LUNGS: no acute respiratory distress
NEUROLOGICAL: Alert and oriented
SKIN: Warm and dry, skin intact.
MUSCULOSKELETAL: Right foot: No obvious deformity, erythema, edema, ecchymosis, abrasions or lacerations. Extremity is warm and well-perfused. There is mild tenderness generally along the plantar surface of the distal metatarsals. No breaks in
the skin
PSYCH: Normal and appropriate interaction.
Scores
Heart Failure Risk
Heart Failure Risk Score: Not Applicable
Heart Score for Chest Pain Patients
STEMI patient?: Not applicable
Withdrawal Assessment of Alcohol
Withdrawal Assessment Completed?: Not applicable
Course
Orders/Labs/Results
Orders:
Orders
05/28/25 23:28
Foot, Right 3 View [CR Foot - Right Min 3 Views] Urgent
Comment:
Reason For Exam: FALL
Vital Signs
Initial and Last Documented VS:
Initial Vital Signs
Temp Pulse Resp BP Pulse Ox
98.1 F 76 16 92/68 100
05/28/25 23:24 05/28/25 23:24 05/28/25 23:24 05/28/25 23:24 05/28/25 23:24
Last Documented Vital Signs
Temp Pulse Resp BP Pulse Ox
98.1 F 76 16 /68 100
05/28/25 23:24 05/28/25 23:24 05/28/25 23:24 05/28/25 23:24 05/29/25 00:20
MDM/Problems Addressed
Differential Diagnosis Includes:
Contusion
Sprain
Fracture
MDM/Problems Addressed:
34-year-old female presenting to the ER for evaluation of right foot injury sustained accidental fall 2020 4 hours ago. Patient is still unable to ambulate. No other injuries were sustained. X-ray was ordered from triage and shows no acute
fracture. Offered an orthopedic boot to help ambulate however patient declines. Recommended Tylenol for pain, patient unable to tolerate NSAIDs, ice and elevation as needed for pain. Stable for discharge home otherwise.
*Radiology
Radiology exam reviewed: preliminary read by ED provider (No acute fracture)
*Pulse Oximetry
SaO2: 100
Oxygen Mode of Delivery: Room air
Patient hypoxic: no
*Critical Care Note
Total Time (30-74mins, 75-104mins- exclusive of procedures): Not Applicable
ED Attending Note
-
Portions of this chart may have been created with voice recognition software.� Occasional wrong word or��sound alike� substitutions may have occurred due to the inherent limitations of voice recognition software.
Discharge Plan
Departure
Patient Disposition: Home (Routine Discharge)
Date of Disposition: 05/29/25
Time of Disposition: 00:20
Patient with high blood pressure during this ER visit?: No
Discharge Problem:
Foot pain, right
Instructions: Sprain (DC)
Prescriptions:
No Action
multivitamin [Multi-Day] 1 EACH tablet
1 ea PO DAILY
tizanidine 4 MG tablet
4 mg PO TID
Patient Comments:
usually only takes nightly
fluticasone propion-salmeterol [Advair Diskus] 250-50 mcg/dose Blister With Device
1 inh INHALATION BID
ipratropium-albuterol [DuoNeb] 0.5 mg-3 mg(2.5 mg base)/3 mL Solution For Nebulization
5 ml INHALATION Q4H PRN (Reason: SOB)
montelukast [Singulair] 10 mg Tablet
10 mg PO DAILY
Wegovy 1.7 mg/0.75 mL Pen Injector
See Rx Instructions .ROUTE .COMPLEX PRN (Reason: SOB)
Rx Instructions:
1 dose q 10 days
albuterol sulfate
2 inh inhalation Q4H PRN (Reason: sob)
prednisone 20 mg tablet
20 mg PO DAILY Qty: 3 0RF
tramadol 50 mg tablet
50 mg PO Q8H PRN (Reason: Pain) Qty: 8 0RF
Interventions
Interventions:
*Risk Screen - Suicide Last Done: 05/28/25 23:24
*General Assessment Last Done: 05/29/25 00:25
*Neglect/Abuse Screening Last Done: 05/28/25 23:24
*ED- Fall Risk Assessment Last Done: 05/29/25 00:25
*ED COVID-19 Vaccine History Last Done: 05/29/25 00:25
*Nursing Disposition Last Done: 05/29/25 00:28
ED-Musculoskeletal Assessment Last Done: 05/29/25 00:25
Discharge Date and Time
Discharge Date/Time: 05/29/25 00:30
Print Language: UPPER SORBIAN
[2025-05-29 00:24] VITALS: BMI 23.2
== END 2025-05-29 00:30 | disposition home or self-care (01) ==
LOC: EMR 23:21
PROVIDERS: EMERGENCY PHYSICIAN Emergency Medicine
DX: M79.671 Pain in right foot (principal); J45.909 Unspecified asthma, uncomplicated
CPT/HCPCS: 99283; 73630

== ENCOUNTER 2025-06-12 01:23 | Emergency (ER) | payer OTHER, SELFPAY ==
[2025-06-11 23:16] VITALS: BP 120/50
[2025-06-12 01:01] VITALS: BP 109/62
[2025-06-12] MEDS: DELTASONE 40 MG PO (01:47)
--- NOTE | 2025-06-12 02:06 | ED.GENMED ---
History of Present Illness
General
Chief Complaint: Back Pain
Source: patient
Exam Limitations: none
Time Seen by Provider: 06/12/25 01:00
Nursing documentation reviewed up to this point in time: agreed with
History of Present Illness
History of Present Illness:
Patient to ED with complaint of bilateral low back pain with radiation to thighs. She has had pain on and off in the past but for the past few days pain has been constant. Reports muscle spasms. Denies fever/chills recent illness. NO abd pain,
n/v/d. No bowel or bladder issues, no saddle paresthesia. Brought self to ED for eval
Past History
Past History
ED Past Medical History: Asthma and Other (PE, sleep apnea, ); Negative HTN, Hypercholesterolemia or NIDDM
ED Past Surgical History: Orthopedic (left rotator cuff) and Other (Gastric sleeve)
Patient has exhibited threatening behavior?: No
Social History
Tobacco: Non-smoker
Alcohol: Occasional
Drug: None
Personal: Single
Living: with family
Family History
Family History: Other (Noncontributory)
Review of Systems
Review of Systems
Allergies reviewed?: Yes
All Other Systems: ROS reviewed and negative except as documented in HPI and ROS
Constitutional: Reports no symptoms
EENT: Reports no symptoms
Respiratory: Reports no symptoms
Cardiac: Reports no symptoms
ABD/GI: Reports no symptoms
: Reports no symptoms
Musculoskeletal: Reports back pain (bilateral lower back with radiation to thighs)
Skin: Reports no symptoms
Neurological: Reports no symptoms
Psychiatric: Reports no symptoms
Phy Exam
General Physical Exam
General Presentation: well appearing and mild distress
General age: appears stated age
General Skin: warm and dry
General Habitus: normal
General Mental: alert
Reflexes
Reflexes: +3: Left patellar and +3: Right patellar
Musculoskeletal Exam
Musculoskeletal Exam: full ROM and neuro vasc intact
Skin Exam
Skin Exam: normal color, warm/dry and no rash
Psychiatric Exam
Psychiatric Exam: normal mood/affect
Course
Orders/Labs/Results
Orders:
Orders
06/12/25 01:43
Prednisone [Deltasone] 40 mg PO NOW STA
Vital Signs
Initial and Last Documented VS:
Initial Vital Signs
Temp Pulse Resp BP Pulse Ox
98.3 F 77 16 120/50 100
06/11/25 23:16 06/11/25 23:16 06/11/25 23:16 06/11/25 23:16 06/11/25 23:16
Last Documented Vital Signs
Temp Pulse Resp BP Pulse Ox
98.3 F 71 18 109/62 100
06/11/25 23:16 06/12/25 01:01 06/12/25 01:01 06/12/25 01:01 06/12/25 02:06
*Radiology
Radiology exam reviewed: radiology read reviewed
*Pulse Oximetry
SaO2: 100
Oxygen Mode of Delivery: Room air
Patient hypoxic: no
*Critical Care Note
Total Time (30-74mins, 75-104mins- exclusive of procedures): Not Applicable
Update Note
Update Note:
Patient to ED with bilateral lower back pain, muscle spasms, radiation to bilateral thighs. No bowel or bladder issues, no weakness in extremities. No s/s for cauda equina. recommend ice, ibuprofen, muscle relaxant, prednisone taper. She is
discharged home and will follow upw ith PCP. Given instructions on s/s to return to ED and she is agreeable to plan.
ED Attending Note
-
Portions of this chart may have been created with voice recognition software.� Occasional wrong word or��sound alike� substitutions may have occurred due to the inherent limitations of voice recognition software.
Discharge Plan
Departure
Patient Disposition: Home (Routine Discharge)
Date of Disposition: 06/12/25
Time of Disposition: 01:44
Patient with high blood pressure during this ER visit?: No
Condition: Good
Covid-19: Not Applicable
Discharge Problem:
Sciatic pain
Instructions: Low Back Pain (DC), Sciatica (DC)
Prescriptions:
New
prednisone 10 mg Tablet
See Rx Instructions .ROUTE .COMPLEX Qty: 30 0RF
Rx Instructions:
Take By Mouth:
40 mg daily x3 days, 30 mg daily x3 days,
20 mg daily x3 days, 10 mg daily x3 days.
baclofen 5 mg tablet
5 mg PO HS PRN (Reason: muscle spasm) Qty: 10 0RF
No Action
multivitamin [Multi-Day] 1 EACH tablet
1 ea PO DAILY
tizanidine 4 MG tablet
4 mg PO TID
Patient Comments:
usually only takes nightly
fluticasone propion-salmeterol [Advair Diskus] 250-50 mcg/dose Blister With Device
1 inh INHALATION BID
ipratropium-albuterol [DuoNeb] 0.5 mg-3 mg(2.5 mg base)/3 mL Solution For Nebulization
5 ml INHALATION Q4H PRN (Reason: SOB)
montelukast [Singulair] 10 mg Tablet
10 mg PO DAILY
Wegovy 1.7 mg/0.75 mL Pen Injector
See Rx Instructions .ROUTE .COMPLEX PRN (Reason: SOB)
Rx Instructions:
1 dose q 10 days
albuterol sulfate
2 inh inhalation Q4H PRN (Reason: sob)
prednisone 20 mg tablet
20 mg PO DAILY Qty: 3 0RF
tramadol 50 mg tablet
50 mg PO Q8H PRN (Reason: Pain) Qty: 8 0RF
Referrals:
Carballo,Dain P., DO [Non-Admitting Privileges, Orthopedics]
UNKNOWN,NO INTERVIEW [Family Provider]
Interventions
Interventions:
*Risk Screen - Suicide Last Done: 06/11/25 23:16
*General Assessment Last Done: 06/11/25 23:16
*Neglect/Abuse Screening Last Done: 06/11/25 23:16
*ED- Fall Risk Assessment Last Done: 06/12/25 01:01
*ED COVID-19 Vaccine History Last Done: 06/12/25 01:01
*ED Influenza Vaccine History Last Done: 06/12/25 01:01
*Nursing Disposition Last Done: 06/12/25 01:53
ED-Musculoskeletal Assessment Last Done: 06/12/25 01:01
Discharge Date and Time
Discharge Date/Time: 06/12/25 01:53
Print Language: ROMANSH
== END 2025-06-12 01:53 | disposition home or self-care (01) ==
LOC: EMR 01:23
PROVIDERS: EMERGENCY PHYSICIAN Student in an Organized Health Care Education/Training Program
DX: M54.42 Lumbago with sciatica, left side (principal); M54.41 Lumbago with sciatica, right side; J45.909 Unspecified asthma, uncomplicated; G47.30 Sleep apnea, unspecified
CPT/HCPCS: 99283

== ENCOUNTER 2025-09-03 00:12 | Emergency (ER) | payer OTHER, SELFPAY ==
[2025-09-03 00:15] VITALS: BP 106/71
--- NOTE | 2025-09-03 00:41 | ED.GENMED ---
History of Present Illness
General
Chief Complaint: Abdominal Symptoms
Source: patient
Exam Limitations: none
Time Seen by Provider: 09/03/25 00:21
Nursing documentation reviewed up to this point in time: agreed with
History of Present Illness
History of Present Illness:
Note:
CHIEF COMPLAINT(S)
Nausea and vomiting.
HISTORY OF PRESENT ILLNESS
The patient is a 34-year-old female who presented with a complaint of nausea and vomiting. She reported that she vomited four times in the past two hours, noting that any attempt to keep food down resulted in it being expelled. The patient attempted
to manage her nausea with Pepto-Bismol but found little relief. She also experienced diarrhea accompanying these symptoms. The patient expressed that her stomach feels as though it is 'turning.'
Physical Exam
General: no apparent distress, not acutely ill
Neck: supple. no meningeal signs. normal posterior pharynx
Heart: s1/s2 regular rate and rhythm, no murmur. equal radial
pulses.
HEENT: Pupils equal round reactive to light, EOMI
Lungs: no acute respiratory distress. clear bilaterally
Abdomen: normal bowel sounds. not tender. no CVAT
Neuro: alert and oriented. no focal neurological deficits cranial nerves II through XII intact
Skin: no rash
Psychiatric: well kept. interactive and cooperative
Extremities: no edema. good distal pulses
PLAN
Administer intravenous fluids and Zofran (Ondansetron) IV to help control nausea and replenish electrolytes. Blood work will be conducted to assess electrolyte levels. Further treatment will be based on response to initial interventions.
DIFFERENTIAL DIAGNOSIS
The Differential Diagnosis includes, in no particular order and is not limited to:
1. Gastroenteritis
2. Food poisoning
3. Viral infection
4. Medication side effects
5. Peptic ulcer disease
6. Pancreatitis
7. Gallbladder disease
8.
9. Irritable bowel syndrome
10. Anxiety or stress-related gastrointestinal upset
Disposition:
SUMMARY OF ENCOUNTER
The patient, a 34-year-old female, was seen in the emergency department with complaints of nausea, vomiting, and diarrhea. She reported vomiting four times in the past two hours. The patient received intravenous fluids and ondansetron (Zofran)
intravenously to control nausea and replenish electrolytes. After treatment, her condition improved, and her abdomen examination was benign. Her vital signs were stable, and labs were normal. A diagnosis of serious conditions such as bowel
obstruction, appendicitis, or cholecystitis was not suspected.
DISPOSITION
The patient is stable for discharge.
ASSESSMENT
The patient presented with nausea, vomiting, and diarrhea. Differential diagnoses considered included gastroenteritis, food poisoning, and viral infection, although these were not explicitly confirmed during this visit.
EMERGENCY TREATMENTS ADMINISTERED
The patient received intravenous fluids and intravenous ondansetron (Zofran).
PLAN
Discharge the patient with a prescription for ondansetron. Advise the patient to return if symptoms worsen or persist.
INDEPENDENT REVIEW OF LABS AND INTERPRETATION OF TESTS
My independent review of available labs indicates normal results.
MEDICATION RECONCILIATION
Prescription for ondansetron (Zofran) given at discharge.
MEDICAL DECISION MAKING
-Complexity of Data Reviewed:
Differential diagnosis considered: gastroenteritis, food poisoning, viral infection, medication side effects, peptic ulcer disease, pancreatitis, gallbladder disease, , irritable bowel syndrome, anxiety, or stress-related gastrointestinal
upset.
-Data:
Category 1
I reviewed the patients available labs, which were normal.
-Risk:
Consideration of Admission/Observation: Escalation of care including admission/observation was considered given the complexity and risk of the patients presenting complaint. However, ultimately I feel the patient is safe for outpatient management
with close follow-up. Reasoning: Work-up is reassuring, does not reveal any acute life/organ threatening processes, patients symptoms are well-controlled upon reevaluation, reexamination is reassuring, vitals are stable, patient is agreeable with
discharge, and reliable for follow-up.
DIAGNOSIS
Nausea and vomiting without underlying condition, unspecified (R11.2).
Diarrhea, unspecified (R19.7).
Past History
Past History
ED Past Medical History: Asthma and Other (PE, sleep apnea, ); Negative HTN, Hypercholesterolemia or NIDDM
ED Past Surgical History: Orthopedic (left rotator cuff) and Other (Gastric sleeve)
Patient has exhibited threatening behavior?: No
Social History
Tobacco: Non-smoker
Alcohol: Occasional
Drug: None
Personal: Single
Living: with family
Family History
Family History: Other (Noncontributory)
Phy Exam
Physical Exam
Physical Exam:
.
Course
Orders/Labs/Results
Orders:
Orders
09/03/25 00:37
IV Insert/Care/Rem.- Treatment PRN
0.9% Sodium Chloride 1000 ml [Nss] 1,000 ml IV BOLUS
Test Result ONCE
09/03/25 00:43
Complete Blood Count/With Diff Urgent
Comprehensive Metabolic Panel Urgent
HCG, Serum Qualitative Screen Urgent
Lipase Urgent
09/03/25 00:47
Ondansetron Injectable [Zofran] 4 mg .ROUTE .STK-MED ONE
09/03/25 00:53
Ondansetron Injectable [Zofran] 4 mg IV NOW STA
09/03/25 00:59
Urinalysis Reflex To Culture Urgent
Date Specimen was Collected: 09/03/25
Time Specimen was Collected: 00:58
Urine Microscopic Reflex Cult Urgent
Urine Culture Urgent
MORRIS Source: U
Specimen Description:
Date Specimen was Collected: 09/03/25
Time Specimen was Collected: 00:58
09/03/25 02:24
Acetaminophen 1000MG/100Ml [Ofirmev] 1,000 mg in 100 ml IV ONCE
Acetaminophen IV Indication:: No FL & No Enteral Access
Pantoprazole [Protonix IV] 40 mg IV NOW STA
09/03/25 02:38
0.9% Sodium Chloride 1000 ml [Nss] 1,000 ml IV BOLUS
Abnormal Lab Results
09/03/25 09/03/25
00:43 00:59
MCH 31.9 H pg
(27.0-31.0)
Abs Immat Gran (auto) 0.1 H 10^3/uL
(0-0.05)
Absolute Neuts (auto) 9.3 H 10^3/uL
(1.4-6.5)
Absolute Lymphs (auto) 0.9 L 10^3/uL
(1.2-3.4)
Immature Gran % 0.6 H %
(0-0.5)
Neutrophils % 88.4 H %
(42.2-75.2)
Lymphocytes % 8.5 L %
(20.5-51.1)
Chloride 108 H mmol/L
(98-107)
BUN 22 H mg/dl
(7-17)
Glucose 110 H mg/dl
(70-99)
AST 42 H U/L
(14-36)
ALT 46 H U/L
(0-35)
Alkaline Phosphatase 33 L U/L
(38-126)
Urine Bacteria (Reflex) Moderate A
(Negative)
Urine Albumin (Reflex) 1+ A
(Neg - Trace)
09/03/25 00:43
09/03/25 00:43
Vital Signs
Initial and Last Documented VS:
Initial Vital Signs
Temp Pulse Resp BP Pulse Ox
97.5 F 92 16 106/71 100
09/03/25 00:15 09/03/25 00:15 09/03/25 00:15 09/03/25 00:15 09/03/25 00:15
Last Documented Vital Signs
Temp Pulse Resp BP Pulse Ox
97.5 F 93 14 105/63 96
09/03/25 00:15 09/03/25 02:46 09/03/25 02:46 09/03/25 02:46 09/03/25 02:46
*Pulse Oximetry
SaO2: 100
Oxygen Mode of Delivery: Room air
Patient hypoxic: no
*Critical Care Note
Total Time (30-74mins, 75-104mins- exclusive of procedures): Not Applicable
ED Attending Note
-
Portions of this chart may have been created with voice recognition software.� Occasional wrong word or��sound alike� substitutions may have occurred due to the inherent limitations of voice recognition software.
Discharge Plan
Departure
Patient Disposition: Home (Routine Discharge)
Date of Disposition: 09/03/25
Time of Disposition: 03:23
Patient with high blood pressure during this ER visit?: No
Condition: Good
Discharge Problem:
Nausea, vomiting and diarrhea
Instructions: Diarrhea in teens and adults, Nausea and Vomiting, Adult (DC), Abdominal Pain
Prescriptions:
New
ondansetron 4 mg tablet,disintegrating
4 mg PO Q8H PRN (Reason: nausea and vomiting) 4 Days Qty: 10 0RF
No Action
multivitamin [Multi-Day] 1 EACH tablet
1 ea PO DAILY
fluticasone propion-salmeterol [Advair Diskus] 250-50 mcg/dose Blister With Device
1 inh INHALATION BID
ipratropium-albuterol [DuoNeb] 0.5 mg-3 mg(2.5 mg base)/3 mL Solution For Nebulization
5 ml INHALATION Q4H PRN (Reason: SOB)
montelukast [Singulair] 10 mg Tablet
10 mg PO DAILY
albuterol sulfate
2 inh inhalation Q4H PRN (Reason: sob)
Referrals:
NONE,* [Family Provider, Internal Medicine]
Interventions
Interventions:
*General Assessment Last Done: 09/03/25 01:21
*Neglect/Abuse Screening Last Done: 09/03/25 00:17
*ED COVID-19 Vaccine History Last Done: 09/03/25 00:17
*ED Influenza Vaccine History Last Done: 09/03/25 00:17
[facility] Fall Risk Assessment Tool Last Done: 09/03/25 00:51
*Risk Screen - Suicide (C-SSRS) Last Done: 09/03/25 01:14
[id number] Assessment Last Done: 09/03/25 00:49
Discharge Date and Time
Print Language: MALDIVIAN
[2025-09-03 00:49] VITALS: BMI 23.1
[2025-09-03 00:51] LABS: Hematocrit 40.2 % (37.0-47.0); Hemoglobin 13.6 g/dL (12.0-16.0); Mean Corp Hgb Conc. 33.8 g/dL (33.0-37.0); Mean Corpuscular Volume 94.4 fL (81.0-99.0); Nucleated Red Blood Cells % 0 %; Platelet Count 161 10^3/uL (130-400); Red Cell Dist. Width 12.4 % (11.5-14.5)
[2025-09-03] MEDS: ZOFRAN 4 MG IV (00:54)
[2025-09-03] MEDS: NSS 1000 IV ×2 (00:55→02:48)
[2025-09-03 01:01] LABS: HCG, Serum Qualitative Screen Negative
[2025-09-03 01:06] LABS: ALT (SGPT) 46 U/L (0-35); AST (SGOT) 42 U/L (14-36); Albumin 4.2 g/dl (3.5-5.0); Alkaline Phosphatase 33 U/L (38-126); Blood Urea Nitrogen 22 mg/dl (7-17); Calcium 8.8 mg/dl (8.4-10.2); Carbon Dioxide 25 mmol/L (22-30); Chloride 108 mmol/L (98-107); Estimated Creatinine Clearance > 125 ml/min; Glucose 110 mg/dl (70-99); Lipase 168 U/L (23-300); Potassium 3.6 mmol/L (3.5-5.1); Sodium 137 mmol/L (135-145); Total Protein 6.9 g/dl (6.3-8.2); eGFR > 60.00
[2025-09-03 01:18] LABS: Urine Character Clear (Clear)
[2025-09-03 01:39] LABS: Urine Squamous Cell >30 /LPF (Few)
[2025-09-03 01:40] LABS: Urine Red Blood Cell 0-2 /HPF (0-2)
[2025-09-03] MEDS: OFIRMEV 100 IV (02:30)
[2025-09-03] MEDS: PROTONIX IV 40 MG IV (02:30)
[2025-09-03 02:46] VITALS: BP 105/63
[2025-09-03 04:21] VITALS: BP 103/54
== END 2025-09-03 04:23 | disposition home or self-care (01) ==
LOC: EMR 00:12
PROVIDERS: EMERGENCY PHYSICIAN Emergency Medicine
DX: R11.2 Nausea with vomiting, unspecified (principal); R19.7 Diarrhea, unspecified; J45.909 Unspecified asthma, uncomplicated; G47.30 Sleep apnea, unspecified
CPT/HCPCS: 96374; 96375; 96361; 99284; 80053; 81003; 81015; 83690; 84703; 85025; 87086